=== PATIENT | male | born 1955 | race Caucasian/White ===

== ENCOUNTER → 2024-06-16 15:44 | Outpatient (CLI) | payer MEDICARE, OTHER, SELFPAY ==
--- NOTE | 2024-06-16 15:49 | DI.MRI.S_ITS ---
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 Axial opposed phase T1 gradient echo and diffusion-weighted imaging were also performed. After the administration of contrast, axial/sagittal/coronal T1 spin echo with fat saturation through the pelvis. COMPARISON: [facility], MR, MR FEMUR LEFT WITH/WITHOUT CONTRAST, 10/31/2023, 9:55. Outside Film, CR, XR PELVIS WITH LATERAL HIP LEFT, 09/04/2023, 9:07. FINDINGS: Image quality: Metal artifact is seen related to the hip arthroplasty including areas of signal void, signal pile-up, and geometric distortion despite the use of metal artifact reduction techniques. Some diagnostic information is obtained. Bones: Postsurgical changes are seen from left hip arthroplasty with associated metal artifact that obscures surrounding structures. Visualized pelvic bones and right proximal femur demonstrate normal signal. No suspicious intraosseous lesion is seen. The distal femur is not included in the field of view of this exam. Soft tissues: Postsurgical changes in the included left proximal thigh. Mild nonspecific subcutaneous edema at the anterior left upper. There is mild atrophy of the left thigh musculature when compared to the right. Evaluation for residual mass is compromised due to metal artifact. A lobular lesion is seen superior medial to the left hip along the external iliac chain with [id number] signal and mildly [id number] signal. Lesion measures up to 8.5 x 5.5 x 5.2 cm (35, , 12/23). Evaluation for postcontrast enhancement is limited due to adjacent metal artifact and inhomogeneous fat suppression. A few small left inguinal lymph nodes are not significantly enlarged by size criteria and are nonspecific. Prior right inguinal hernia repair. Small fat containing left inguinal hernia. Mildly distended bladder with probable posterior diverticulum. Colonic diverticulosis. IMPRESSION: 1. Postsurgical changes from resection of previously seen left upper thigh mass and left hip arthroplasty. Metal artifact obscures adjacent structures. 2. An 8.5 cm [id number] lesion is seen in the pelvis along the external iliac chain. Signal characteristics are similar when compared to the prior mass, and a jose luis metastasis or progressive residual disease is suspected. 3. No definite residual mass at the resection bed although evaluation is compromised due to metal artifact. Approved by: Todd Jenkins M.D. on 06/17/2024 at 10:04
== END ==
PROVIDERS: Referring Provider Physician Assistant; Visit Provider Physician Assistant
DX: C41.9 Malignant neoplasm of bone and articular cartilage, unspecified (principal); C40.22 Malignant neoplasm of long bones of left lower limb; K40.90 Unilateral inguinal hernia, without obstruction or gangrene, not specified as recurrent; Z96.642 Presence of left artificial hip joint
CPT/HCPCS: 72197; A9579